=== PATIENT | male | born 1960 | race Caucasian/White ===

== ENCOUNTER 2016-12-26 11:20 | Day surgery (SDC) | payer MEDICARE ==
[2016-12-21 08:57] VITALS: BMI 28.1
[2016-12-26] MEDS ORDERED: Lidocaine 1% Inj (20ml) ONE (12:47)
[2016-12-26] MEDS ORDERED: cefTRIAXone IV 1 gm in Dextros 0 ML IVPB ONE (12:47)
[2016-12-26] MEDS ORDERED: Bupivacaine HCl 0.25% PF (10 ml) Inj ONE ×2 (12:47→13:49)
[2016-12-26] MEDS ORDERED: Bacitracin Ointment 30 GM TUBE ONE (12:48)
[2016-12-26] MEDS ORDERED: Lactated Ringer's 1,000 ML IV ONE ×2 (13:45→14:25)
[2016-12-26] MEDS ORDERED: ceFAZolin IV 1 gm in Dextrose 1 GM/50 ML BAG IVPB ONE (13:49)
[2016-12-26] MEDS ORDERED: Midazolam 2 MG/2 ML VIAL ONE (13:55)
[2016-12-26] MEDS ORDERED: Propofol 10 mg/ml Inj (20 ML) ONE (13:56)
[2016-12-26] MEDS ORDERED: Oxycodone/Acetaminophen 5/325 mg Tab PO PRN (14:42)
[2016-12-26] MEDS ORDERED: HYDROmorphone 0.5 mg/0.5 ml ISec IVP PRN (14:56)
[2016-12-26] MEDS ORDERED: Lactated Ringer's 1,000 ML IV SCH (15:00)
--- NOTE | 2016-12-26 17:12 | OP ---
PROCEDURE DATE: 12/26/2016 PREOPERATIVE DIAGNOSES: Phimosis, balanitis and uncomfortable erections. POSTOPERATIVE DIAGNOSES: Phimosis, balanitis and uncomfortable erections. PROCEDURE: Circumcision. SURGEON: Luis Daniel Mejia MD COMPLICATIONS: No complications. BLOOD LOSS: Less than 10 mL. INDICATIONS: See the history and physical for the details. Very pleasant gentleman. We discussed o ptions. He is uncomfortable with his foreskin and we performed circumcision. We discussed no treatm ents. We discussed creams. We discussed various options. After discussing all those options, he is here today for the above. We also discussed the risks of ____ keloids and the like. PROCEDURE ITSELF: After informed consent, the patient was placed on the table, routine monitors plac ed. Timeouts were called to confirm the patient and positioning. All this was provided by way of tr sharmaine here with one of the nursing staff. The patient mostly speaks Turkish, although he made ramsey e jokes in Filipino. Anyway, the patient brought to the OR, placed on the table, routine monitors placed. Timeouts were c alled to confirm the patient and patient was supine. Besides general anesthesia, we also provided the patient with some Marcaine and lidocaine mixture, 0. 5% and 1% with no epinephrine. We then continued. We then continued and we made ____. We did our skin marking section. We did the skin markings prior to any injections just so that we ke pt it nice and natural in the flaccid state. We outlined the penis. The foreskin retracted. We did a sleeve incision. We now examined closely, a nice even incision. We achieved hemostasis using cautery. We now reapproximated the distal and proximal edges, very evenly we did a U stitch at the frenular ar ea. We applied a dry sterile dressing. The patient tolerated ____ procedure well without complication. Luis Daniel Mejia MD cc: [id number] TT: 12/26/2016 17:11:28
--- NOTE | 2016-12-26 17:20 | HP ---
REASON FOR ADMISSION: For treatment of phimosis and balanitis. HISTORY OF PRESENT ILLNESS: This is a very pleasant gentleman. He is here today for a circumcision. The patient is a very pleasant 56-year-old gentleman. He has mild/moderate voiding obstructive, irri tative complaints. his penis hurts the patient. Particularly if he gets an erection. He does not get so many erections. PAST MEDICAL AND SURGICAL HISTORY: As listed on the chart. No history of an MT or CVA. SOCIAL HISTORY: Essentially unremarkable. MEDICATIONS: See the chart. ALLERGIES: None. PHYSICAL EXAMINATION: GENERAL: Well-nourished male in no apparent distress. VITAL SIGNS: Normal. ABDOMEN: Overall soft, nontender. No flank mass. LUNGS: Clear. HEART: S1, S2. ABDOMEN: Soft, nontender. DIAGNOSES: Phimosis, balanitis. PLAN: Is as follows: We are going to do a circumcision. We discussed risks, benefits, alternatives , including the risk of scar tissue. Discussed options, creams, etc. After discussing those options, plan is for: 1. Antibiotic prophylaxis. 2. Circumcision. 3. Further plans to follow. Luis Daniel Mejia MD cc: [id number] TT: 12/26/2016 17:19:48 kevin
[2016-12-26 20:10] VITALS: BP 140/73; PULSE 68; RESP 20; TEMP 97.9; O2SAT 99
== END 2016-12-26 18:15 | disposition home or self-care (01) ==
LOC: C.SDS 11:20
PROVIDERS: ATTEND Urology
DX: N47.1 Phimosis (principal); N48.1 Balanitis
CPT/HCPCS: 54161; 82948; 88304; J0690; J1170; J2250; J2704; J3010; J7120